=== PATIENT | female | born 1970 | race Caucasian/White ===

== ENCOUNTER 2023-03-07 11:03 | Emergency (ER) | payer OTHER ==
[~2023-03-07] VITALS: Ht 160 cm; Wt 98.9 kg
[2023-03-07 12:18] LABS: HEMATOCRIT 38.3 % (36.0-45.00); MEAN CELL VOLUME 82.5 fL (80.00-100.00); MEAN CORPUSCULAR HGB CONC 33.9 g/dl (32.0-36.0); PLATELET COUNT 276 K/uL (150-450); RED BLOOD COUNT 4.64 M/uL (4.00-6.00); RED CELL DISTRIBUTION WIDTH 14.5 % (11.5-14.5)
[2023-03-07 12:36] LABS: CALCIUM 9.5 mg/dL (8.5-10.1); CREATININE SERUM 0.84 mg/dL (0.55-1.02); GFR 70.65; POTASSIUM 4.15 mEq/L (3.5-5.1)
== END 2023-03-07 15:19 | disposition home or self-care (01) ==
LOC: ER 11:04
PROVIDERS: Emergency Medicine
DX: R10.9 Unspecified abdominal pain (principal); Z91.013 Allergy to seafood

== ENCOUNTER → 2023-11-30 07:22 | Outpatient (CLI) | payer OTHER ==
[2023-11-30 09:33] LABS: HEMATOCRIT 37.7 % (36.0-45.00); HEMOGLOBIN 12.4 g/dL (12.0-15.00); MEAN CORPUSCULAR HEMOGLOBIN 27.3 pg (27.00-32.0); MEAN CORPUSCULAR HGB CONC 32.9 g/dl (32.0-36.0); PLATELET COUNT 245 K/uL (150-450); RED BLOOD COUNT 4.54 M/uL (4.00-6.00); RED CELL DISTRIBUTION WIDTH 13.9 % (11.5-14.5)
[2023-11-30 10:03] LABS: ALBUMIN 3.3 gm/dL (3.4-5.0); ALKALINE PHOSPHATASE 130 U/L (50-136); ALT/SGPT 15 U/L (12-78); ANION GAP 6 (10.0-20.0); BILIRUBIN TOTAL 0.45 mg/dL (0.3-1.2); BLOOD UREA NITROGEN 16 mg/dL (7-18); BUN CREA RATIO 21 (7.0-25.0); CARBON DIOXIDE 31 mEq/L (21-32); CHLORIDE 108 mmol/L (98-107); CHOL HDL RATIO 3.8 (0-5.0); CHOLESTEROL 192 mg/dL (0-200); CREATININE SERUM 0.75 mg/dL (0.55-1.02); GFR 80.53; GLUCOSE FASTING 118 mg/dL (65-100); HDL 51 mg/dl (40-60); LDL 116 mg/dl (0-130); OSMOLALITY SERUM 282 MOSM/KG (275-295); POTASSIUM 4.74 mEq/L (3.5-5.1); SODIUM 140 mmol/L (136-145); TOTAL PROTEIN 7.3 gm/dL (6.4-8.2); TRIGLYCERIDES 127 mg/dL (0-150); VLDL 25 (0-39)
[2023-11-30 10:07] LABS: AST/SGOT < 3 U/L (15-37)
== END | disposition home or self-care (01) ==
LOC: LAB 07:22
PROVIDERS: ATTEND Internal Medicine
DX: E11.65 Type 2 diabetes mellitus with hyperglycemia (principal); E78.01 Familial hypercholesterolemia; E03.9 Hypothyroidism, unspecified; Z12.11 Encounter for screening for malignant neoplasm of colon

== ENCOUNTER 2024-02-18 09:44 | Emergency (ER) | payer OTHER ==
[~2024-02-18] VITALS: Ht 160 cm; Wt 96.6 kg
[2024-02-18] MEDS ORDERED: GLUMETZA500 MG (10:18)
[2024-02-18] MEDS ORDERED: COZAAR100 MG PO (10:18)
[2024-02-18] MEDS ORDERED: NIFEDIPINE20 MG (10:19)
[2024-02-18] MEDS ORDERED: SYMBICORT 16010.2 GM (10:19)
[2024-02-18] MEDS ORDERED: CRESTOR40 MG PO (10:19)
[2024-02-18] MEDS ORDERED: FAMOtidine 10 MG/ML (4ML VIAL) IV STA (11:42)
[2024-02-18] MEDS ORDERED: ORPHENADRINE CITRATE 30 MG/ML AMPUL IM STA (11:42)
[2024-02-18 12:24] LABS: HEMATOCRIT 38.5 % (36.0-45.00); HEMOGLOBIN 13.1 g/dL (12.0-15.00); MEAN CELL VOLUME 81.7 fL (80.00-100.00); MEAN CORPUSCULAR HEMOGLOBIN 27.8 pg (27.00-32.0); PLATELET COUNT 286 K/uL (150-450); RED BLOOD COUNT 4.71 M/uL (4.00-6.00); RED CELL DISTRIBUTION WIDTH 14.6 % (11.5-14.5)
[2024-02-18 12:45] LABS: ALBUMIN 3.7 gm/dL (3.4-5.0); BILIRUBIN TOTAL 0.45 mg/dL (0.3-1.2); BILIRUBIN,CONJUGATED 0.12 mg/dL (0.0-0.2); BILIRUBIN,UNCONJUGATED 0.33 mg/dL (0.0-0.6); CALCIUM 9.1 mg/dL (8.5-10.1); CREATININE SERUM 0.8 mg/dL (0.55-1.02); GFR 74.47; POTASSIUM 4.31 mEq/L (3.5-5.1); TOTAL PROTEIN 8.1 gm/dL (6.4-8.2)
[2024-02-18 14:18] LABS: PH,URINE 6.5 (5.0-8.0); URINE APPEARANCE Clear; URINE BILIRRUBIN Negative (NEGATIVE); URINE COLOR Yellow; URINE GLUCOSE Negative (NEGATIVE); URINE KETONE Negative (NEGATIVE); URINE LEUKOCYTE Negative; URINE NITRATE Negative; URINE PROTEIN Negative (NEGATIVE)
[2024-02-18 14:22] LABS: URINE BACTERIA 289.8 uL (0.0-1933); URINE EPITHELIAL CELLS 22.7 uL (0.0-38.8); URINE RBC 29.3 uL (0.0-20.8); URINE WBC 2.7 uL (0.0-23.2)
[2024-02-18 14:30] LABS: URINE BLOOD Trace
== END 2024-02-18 15:25 | disposition home or self-care (01) ==
LOC: ER 09:46
PROVIDERS: General Practice
DX: R07.9 Chest pain, unspecified (principal); Z91.013 Allergy to seafood; E11.9 Type 2 diabetes mellitus without complications; Z79.84 Long term (current) use of oral hypoglycemic drugs; I10 Essential (primary) hypertension

== ENCOUNTER 2024-03-28 09:51 | Emergency (ER) | payer OTHER ==
[~2024-03-28] VITALS: Ht 160 cm; Wt 95.3 kg
[~2024-03-28 09:51] MED LIST: COZAAR100 MG PO; CRESTOR40 MG PO; GLUMETZA500 MG; NIFEDIPINE20 MG; SYMBICORT 16010.2 GM
[2024-03-28] MEDS ORDERED: METHYLPREDNISOLONE SOD SUCC 40 MG VIAL ONE (11:07)
[2024-03-28] MEDS ORDERED: WATER FOR INJ.,BACTERIOSTATIC 30 ML VIAL IJ ONE (11:07)
[2024-03-28] MEDS ORDERED: IPRATROPIUM BROMIDE 0.5 MG/2.5 ML AMPUL.NEB IH ONE ×4 (11:15→14:25)
[2024-03-28] MEDS ORDERED: LEVALBUTEROL HCL 1.25 MG/3 ML SOLUTION IH ONE ×3 (11:15→14:25)
[2024-03-28] MEDS ORDERED: CEFTRIAXONE SODIUM 1,000 MG VIAL IV ONE (11:15)
[2024-03-28] MEDS ORDERED: METHYLPREDNISOLONE SOD SUCC 40 MG VIAL IM ONE (11:15)
[2024-03-28] MEDS ORDERED: BENZONATATE 100 MG CAPSULE PO ONE (11:15)
[2024-03-28] MEDS ORDERED: LEVALBUTEROL HCL 0.63 MG/3 ML SOLUTION IH ONE (11:50)
[2024-03-28 12:10] LABS: ABG pCO2 32.4 mmHg (35-45)
[2024-03-28 12:11] LABS: ABG PO2 52.2 mmHg (80-100); BASE EXCESS 1.1 mmol/l; BICARBONATE 23.8 mmol/l (23-25); SaO2 89.5 %; Tco2 24.8 mmol/l; allen test SATISFACTORY; o2 21 %; puncture site RADIAL RIGHT
[2024-03-28 12:17] LABS: HEMATOCRIT 37.5 % (36.0-45.00); HEMOGLOBIN 12.5 g/dL (12.0-15.00); MEAN CELL VOLUME 81.5 fL (80.00-100.00); MEAN CORPUSCULAR HEMOGLOBIN 27.3 pg (27.00-32.0); MEAN CORPUSCULAR HGB CONC 33.5 g/dl (32.0-36.0); PLATELET COUNT 260 K/uL (150-450); RED CELL DISTRIBUTION WIDTH 14.8 % (11.5-14.5)
[2024-03-28 13:07] LABS: ALBUMIN 3.1 gm/dL (3.4-5.0); BILIRUBIN TOTAL 0.56 mg/dL (0.3-1.2); CALCIUM 8.7 mg/dL (8.5-10.1); CREATININE SERUM 1.12 mg/dL (0.55-1.02); GFR 50.51; GLOBULINA 4.8 G/DL (2.4-3.5); POTASSIUM 3.87 mEq/L (3.5-5.1); TOTAL PROTEIN 7.9 gm/dL (6.4-8.2)
[2024-03-28] MEDS ORDERED: MAGNESIUM SULFATE IN WATER 2 GM/50 ML PIGGYBAG IV ONE (13:45)
[2024-03-28] MEDS ORDERED: LEVALBUTER0.63 MG/3 IH (15:10)
[2024-03-28] MEDS ORDERED: MEDROLPACK PO (15:10)
[2024-03-28] MEDS ORDERED: PEPCID AC20 MG PO (15:10)
[2024-03-28] MEDS ORDERED: ZITHROMAX500 MG PO (15:10)
[2024-03-28] MEDS ORDERED: SINGULAIR10 MG PO (15:10)
[2024-03-28] MEDS ORDERED: BENZONATATE200 M1 PO (15:10)
== END 2024-03-28 15:20 | disposition home or self-care (01) ==
LOC: ER 09:54
PROVIDERS: General Practice
DX: R06.02 Shortness of breath (principal); R05.9 Cough, unspecified; Z20.822 Contact with and (suspected) exposure to COVID-19; I10 Essential (primary) hypertension; E11.9 Type 2 diabetes mellitus without complications; Z79.84 Long term (current) use of oral hypoglycemic drugs; Z91.013 Allergy to seafood

== ENCOUNTER 2024-06-27 09:16 | Outpatient (CLI) | payer OTHER ==
[~2024-06-27 09:16] MED LIST changes: +BENZONATATE200 M1 PO; +LEVALBUTER0.63 MG/3 IH; +MEDROLPACK PO; +PEPCID AC20 MG PO; +SINGULAIR10 MG PO; +ZITHROMAX500 MG PO
[2024-06-27 10:08] LABS: URINE APPEARANCE Clear; URINE BACTERIA 201.9 uL (0.0-1933); URINE BILIRRUBIN Negative (NEGATIVE); URINE BLOOD Small; URINE COLOR Yellow; URINE EPITHELIAL CELLS 21.6 uL (0.0-38.8); URINE GLUCOSE Negative (NEGATIVE); URINE KETONE Negative (NEGATIVE); URINE LEUKOCYTE Negative; URINE NITRATE Negative; URINE PROTEIN Negative (NEGATIVE); URINE RBC 22.5 uL (0.0-20.8); URINE UROBILINOGEN 0.2 E.U./dl; URINE WBC 7.1 uL (0.0-23.2)
[2024-06-27 10:20] LABS: URINE CAST 0.14 uL (0.0-1.40)
[2024-06-27 10:27] LABS: MEAN CELL VOLUME 83.6 fL (80.00-100.00); MEAN CORPUSCULAR HEMOGLOBIN 27.8 pg (27.00-32.0); MEAN CORPUSCULAR HGB CONC 33.3 g/dl (32.0-36.0); PLATELET COUNT 239 K/uL (150-450); RED CELL DISTRIBUTION WIDTH 14.7 % (11.5-14.5)
[2024-06-27 10:39] LABS: ERYTHROCYTE SEDIMENTATION RATE 24 mm/hr
[2024-06-27 10:55] LABS: ALBUMIN 3.4 gm/dL (3.4-5.0); BILIRUBIN TOTAL 0.62 mg/dL (0.3-1.2); CALCIUM 9.1 mg/dL (8.5-10.1); CHOL HDL RATIO 2.7 (0-5.0); CREATININE SERUM 0.72 mg/dL (0.55-1.02); GFR 84.1; GLOBULINA 3.9 G/DL (2.4-3.5); POTASSIUM 4.02 mEq/L (3.5-5.1); TOTAL PROTEIN 7.3 gm/dL (6.4-8.2); TSH 2.3 uIU/mL (0.358-3.74)
[2024-06-27 11:21] LABS: C-REACTIVE PROTEIN 0.47 MG/DL (0.00-0.29)
== END 2024-06-27 09:18 | disposition home or self-care (01) ==
LOC: LAB 09:16
PROVIDERS: ATTEND Family Medicine
DX: Z12.11 Encounter for screening for malignant neoplasm of colon (principal); E78.9 Disorder of lipoprotein metabolism, unspecified; E11.9 Type 2 diabetes mellitus without complications; I11.9 Hypertensive heart disease without heart failure; E03.9 Hypothyroidism, unspecified; M19.90 Unspecified osteoarthritis, unspecified site; E11.65 Type 2 diabetes mellitus with hyperglycemia; E78.5 Hyperlipidemia, unspecified; E03.8 Other specified hypothyroidism; E55.9 Vitamin D deficiency, unspecified; R51.9 Headache, unspecified

== ENCOUNTER 2024-10-26 09:41 | Outpatient (CLI) | payer OTHER | END 2024-10-26 09:44 | disposition home or self-care (01) | LOC: MAMO-SONO 09:41 | DX: N60.11 Diffuse cystic mastopathy of right breast (principal); N60.12 Diffuse cystic mastopathy of left breast ==

== ENCOUNTER 2024-12-19 08:13 | Outpatient (CLI) | payer OTHER ==
[2024-12-19 09:56] LABS: BASO % 0.3 % (0.1-1.2); EOS # 0.23 (0.04-0.54); EOS % 3.0 % (0.7-7.0); LYMPH # 3.26 (1.18-3.74); LYMPH % 42.9 % (19.3-53.1); MEAN PLATELET VOLUME 10.90 fl (9.4-12.4); MONO # 0.43 (0.24-0.82); MONO % 5.7 % (4.7-12.5); NEUT # 3.65 (1.56-6.13); NEUT % 48.0 % (34.0-71.1); RED CELL DISTRIBUTION WIDTH 13.2 % (11.6-14.4)
[2024-12-19 09:57] LABS: ERYTHROCYTE SEDIMENTATION RATE 17 mm/hr (0-30)
[2024-12-19 11:56] LABS: ALT/SGPT 16.0 U/L (12-78); AST/SGOT 4.0 U/L (15-37); BILIRUBIN TOTAL 0.47 mg/dL (0.3-1.2); BUN CREA RATIO 18.0 (7.0-25.0); CHOL HDL RATIO 3.8 (0-5.0); CREATININE SERUM 0.71 mg/dL (0.55-1.02); GFR 85.46; GLOBULINA 3.7 G/DL (2.4-3.5); GLUCOSE FASTING 122.0 mg/dL (65-100); HDL 49.0 mg/dl (40-60); LDL 111.0 mg/dl (0-130); OSMOLALITY SERUM 281.0 MOSM/KG (275-295); TSH 2.15 uIU/mL (0.358-3.74); VLDL 28.0 (0-39)
== END 2024-12-19 08:14 | disposition home or self-care (01) ==
LOC: LAB 08:13
DX: E11.65 Type 2 diabetes mellitus with hyperglycemia (principal); E78.01 Familial hypercholesterolemia; E03.9 Hypothyroidism, unspecified; M79.7 Fibromyalgia; E53.8 Deficiency of other specified B group vitamins

== ENCOUNTER 2025-02-26 23:23 | Emergency (ER) | payer OTHER ==
[~2025-02-26] VITALS: Ht 160 cm; Wt 95.3 kg
[2025-02-27 01:41] LABS: BASO % 0.2 % (0.1-1.2); EOS # 0.12 (0.04-0.54); EOS % 1.0 % (0.7-7.0); LYMPH # 3.19 (1.18-3.74); LYMPH % 27.5 % (19.3-53.1); MEAN PLATELET VOLUME 10.70 fl (9.4-12.4); MONO # 0.74 (0.24-0.82); MONO % 6.4 % (4.7-12.5); NEUT # 7.50 (1.56-6.13); NEUT % 64.5 % (34.0-71.1); RED CELL DISTRIBUTION WIDTH 13.1 % (11.6-14.4)
[2025-02-27 02:14] LABS: BUN CREA RATIO 17.0 (7.0-25.0); CREATININE SERUM 1.12 mg/dL (0.55-1.02); GFR 50.32; OSMOLALITY SERUM 292.0 MOSM/KG (275-295); TSH 3.07 uIU/mL (0.358-3.74)
[2025-02-27 02:15] LABS: GLUCOSE FASTING 288.0 mg/dL (65-100)
== END 2025-02-27 04:01 | disposition home or self-care (01) ==
LOC: ER 23:24
PROVIDERS: General Practice
DX: R42 Dizziness and giddiness (principal); I95.9 Hypotension, unspecified; E11.9 Type 2 diabetes mellitus without complications; Z79.84 Long term (current) use of oral hypoglycemic drugs; Z87.09 Personal history of other diseases of the respiratory system; Z91.013 Allergy to seafood